=== PATIENT | female | born 1980 | race Caucasian/White ===

== ENCOUNTER 2017-12-08 12:59 | Outpatient (REF) | payer MEDICAID, SELFPAY ==
[2017-12-08 19:56] LABS: HCT 43.2 % (36.0-46.0); HGB 14.5 g/dL (12.0-15.5); Mean Corp. HGB Concentration 33.6 g/dL (32.0-36.0); Mean Corpuscular Hemoglobin 31.9 pg (27.0-33.0); Mean Corpuscular Volume 94.9 fL (80-95); Mean Platelet Volume 10.2 fL (8.0-11.0); Platelet Count 211 x1000/uL (130-400); RBC 4.55 m/cumm (4.00-5.20); RBC Distribution Width 12.9 % (11.7-14.6); White Blood Cell Count 4.62 k/cumm (4.4-10.8)
[2017-12-08 20:45] LABS: ALT 35 U/L (12-78); AST 19 U/L (15-37); Albumin 4.1 g/dL (3.4-5.0); Alkaline Phosphatase 61 U/L (46-116); Anion Gap 7.8 mmol/L (3-11); BUN 11 mg/dL (7-18); Bilirubin, Total 0.4 mg/dL (0.2-1.0); CO2 28.2 mmol/L (21.0-32.0); CREATININE 0.85 mg/dL (0.55-1.02); Calcium 8.6 mg/dL (8.5-10.1); Chloride 105 mmol/L (98-107); Glucose 90 mg/dL (70-100); Potassium 3.9 mmol/L (3.5-5.1); Sodium 141 mmol/L (136-145); TSH (W/Ref FT4) 1.36 uIU/mL (0.358-3.74); Total Protein 7.2 g/dL (6.4-8.2); Vitamin B12 502 pg/mL (193-986)
[2017-12-08 21:04] LABS: Folate > 20.0 ng/mL (8.6-20.0)
[2017-12-10 10:30] LABS: Hepatitis B Surface Ag Negative (NEGAT)
[2017-12-10 10:38] LABS: HIV-1/2 Ag & Ab Screen Negative (NEGAT)
[2017-12-10 10:44] LABS: Hepatitis C Ab w Rflx HCV PCR Negative (NEGAT)
== END 2017-12-08 13:19 ==
LOC: NCHCN 12:59
PROVIDERS: PCP Family Medicine; Visit Provider Family Medicine
DX: R53.83 Other fatigue (principal); Z11.3 Encounter for screening for infections with a predominantly sexual mode of transmission; Z11.59 Encounter for screening for other viral diseases; Z11.4 Encounter for screening for human immunodeficiency virus [HIV]
CPT/HCPCS: 80053; 85027; 86803; 87340; 87389; 82607; 82746; 84443; 87350

== ENCOUNTER 2019-07-31 14:15 | Outpatient (REF) | payer MEDICAID, SELFPAY ==
[2019-07-31 15:39] LABS: HCT 39.5 % (36.0-46.0); HGB 13.2 g/dL (12.0-15.5); Mean Corp. HGB Concentration 33.4 g/dL (32.0-36.0); Mean Corpuscular Hemoglobin 31.4 pg (27.0-33.0); Mean Platelet Volume 9.1 fL (8.0-11.0); RBC Distribution Width 12.7 % (11.7-14.6)
[2019-07-31 15:58] LABS: ALT 21 U/L (14-59); AST 19 U/L (15-37); Albumin 3.7 g/dL (3.4-5.0); Alkaline Phosphatase 80 U/L (46-116); Anion Gap 10.2 mmol/L (3-11); BUN 9 mg/dL (7-18); Bilirubin, Total 0.3 mg/dL (0.2-1.0); CO2 26.8 mmol/L (21.0-32.0); CREATININE 0.91 mg/dL (0.55-1.02); Calcium 8.6 mg/dL (8.5-10.1); Chloride 106 mmol/L (98-107); Glucose 108 mg/dL (74-106); Potassium 3.8 mmol/L (3.5-5.1); Sodium 143 mmol/L (136-145); Total Protein 6.6 g/dL (6.4-8.2)
[2019-08-02 13:05] LABS: IgA 177 mg/dL (85-499); Tissue Transglutaminase IgA <1.2 U/mL (<4.0)
== END 2019-07-31 14:35 ==
LOC: NCHCN 14:15
PROVIDERS: PCP Family Medicine; Visit Provider Family Medicine
DX: R19.7 Diarrhea, unspecified (principal); R60.9 Edema, unspecified
CPT/HCPCS: 80053; 82784; 83516; 85027; 84443

== ENCOUNTER 2021-01-15 12:51 | Outpatient (REF) | payer MEDICAID, SELFPAY ==
[2021-01-15 20:22] LABS: Hemoglobin A1C 5.1 % (<5.7)
[2021-01-15 20:35] LABS: TSH (W/Ref FT4) 2.15 uIU/mL (0.36-3.74)
[2021-01-20 10:25] LABS: HIV-1/2 Ag & Ab Screen Negative (Negative)
[2021-01-20 10:27] LABS: Hepatitis C Ab w Rflx HCV PCR Negative (Negative)
== END 2021-01-15 12:52 | disposition home or self-care (01) ==
LOC: NCHCN 12:51
PROVIDERS: PCP Family Medicine; Visit Provider Family Medicine
DX: R53.83 Other fatigue (principal); F32.9 Major depressive disorder, single episode, unspecified; Z11.59 Encounter for screening for other viral diseases; Z11.4 Encounter for screening for human immunodeficiency virus [HIV]
CPT/HCPCS: 86803; 87389; 83036; 84443

== ENCOUNTER 2021-08-13 15:45 | Outpatient (REF) | payer MEDICAID, SELFPAY ==
--- NOTE | 2021-08-13 14:20 | PAPFT_PTH ---
PATIENT: Tracie Rivera LOC: [facility]#:[id number] AGE/SX: 41/F ROOM: RE08/13/[address]: Piper Biswas : 1980 BED: DIS: 08/13/2021 SPEC #: [id number] RECD: 08/14/21 12:51 STATUS: ANGIE BENITEZ #: [id number] YANG: 08/13/21 14:[address]: Piper Biswas DEPT: [facility] Cytology RECD BY: Janie Madden Tissues: 1 - CX/ENDOCX FOR PAP SMEARS Procedures: PAP THIN PREP/UVM Screening HPV DNA PROBE Comments: [id number]
== END 2021-08-13 15:46 | disposition home or self-care (01) ==
LOC: NCHCN 15:45
PROVIDERS: PCP Family Medicine; Visit Provider Family Medicine
DX: Z12.4 Encounter for screening for malignant neoplasm of cervix (principal); Z11.51 Encounter for screening for human papillomavirus (HPV); Z01.419 Encounter for gynecological examination (general) (routine) without abnormal findings
CPT/HCPCS: 88142; 87624

== ENCOUNTER 2021-12-05 16:39 | Emergency (ER) | payer MEDICAID, SELFPAY ==
[2021-12-05 16:51] VITALS: BP 118/58; PULSE 76; RESP 18; TEMP 36.8; O2SAT 99
--- NOTE | 2021-12-05 17:02 | ED.GENADUL_ITS ---
Discharge Plan Disposition Patient Disposition: HOME Condition: Improving Discharge Details Clinical Impression: Odontalgia Primary Care Provider: Piper Biswas ED Provider: Earl Martinez Home Meds and New Rx's Prescriptions: New penicillin V potassium 500 mg tablet 500 mg PO TID 10 Days Qty: 30 0RF Continued valacyclovir 500 mg tablet 500 mg PO DAILY PRN NuvaRing 0.12-0.015 mg/24 hr ring 1 vag ring VG Q4W Qty: 3 6RF Rx Instructions: leave in place for 3 weeks of a 4-week cycle ondansetron HCl 4 MG tablet 4 mg PO TID albuterol sulfate 8.5 GM HFA aerosol inhaler 2 puff Inhalation BID buprenorphine-naloxone [Suboxone] 8-2 mg film 8 mg Sublingual DAILY bupropion HCl 100 mg tablet 150 mg PO DAILY ketoconazole 2 % cream 1 applic TP DAILY PRN dextroamphetamine-amphetamine [Adderall XR] 20 mg capsule,extended release 24hr 20 mg PO DAILY mirtazapine 7.5 mg tablet 7.5 mg PO DAILY rizatriptan 10 mg tablet 10 mg PO ONCE PRN Rx Instructions: may repeat once after at least 2 hours eszopiclone [Lunesta] 1 mg tablet 1 mg PO QHS PRN terbinafine HCl 1 % cream 1 applic TP DAILY PRN Discharge Instructions Instructions: Toothache (ED) Additional Instructions: Please follow-up with dentistry, right see enclosed. Salt water gargling. Tylenol and ibuprofen as needed for pain. Take penicillin as prescribed. Return to the ER for any acute concern Medical Decision Making Ovarian oval 41-year-old female with intermittent left upper unerupted wisdom tooth pain for years. Now with 2 days of recurrent pain and foul-smelling discharge yesterday. No change to voice, no swallowing difficulties she has not had a fever. She has evidence of periapical infection. We will treat with a course of penicillin. She is given referral for dentistry follow-up. She is stable and appropriate for discharge. HPI General Mode of arrival: ambulatory . Date/Time Provider Initiated Documentation: 12/05/21 16:55 . Limitations to Documentation: no limitations . Information obtained by: patient . History of Present Illness 41 year old F presents to the emergency department with the chief complaint of Left upper dental pain, recurrent, described as moderate and similar to prior episodes, Quality is described as dull and constant, and is localized to the face, mouth and left. Patient reports no radiation. Patient started experiencing this day(s) and it has been constant. No relieving factors improve symptom(s), No exacerbating factors reported . Patient notes denies chest pain, cough, fever/chills, loss of appetite, nausea/vomiting and shortness of breath. Related Data Home Medications Medication Instructions Recorded Confirmed albuterol sulfate 90 mcg/actuation 2 puff inhalation BID 09/18/14 06/01/18 aerosol inhaler ondansetron HCl 4 mg tablet 4 mg PO TID 09/18/14 06/01/18 buprenorphine 8 mg-naloxone 2 mg 8 mg sublingual DAILY 06/01/18 06/01/18 sublingual film (Suboxone) bupropion HCl 100 mg tablet 150 mg PO DAILY 06/01/18 06/01/18 etonogestrel 0.12 mg-ethinyl 1 vag ring vaginal Q4W #3 ea 06/01/18 06/01/18 estradiol 0.015 mg/24 hr vaginal ring (NuvaRing) valacyclovir 500 mg tablet 500 mg PO DAILY PRN 06/01/18 06/01/18 dextroamphetamine-amphetamine ER 20 mg PO DAILY 08/03/19 20 mg 24hr capsule,extend release (Adderall XR) eszopiclone 1 mg tablet (Lunesta) 1 mg PO QHS PRN 08/03/19 ketoconazole 2 % topical cream 1 applic topical DAILY PRN 08/03/19 mirtazapine 7.5 mg tablet 7.5 mg PO DAILY 08/03/19 rizatriptan 10 mg tablet 10 mg PO ONCE PRN 08/03/19 terbinafine HCl 1 % topical cream 1 applic topical DAILY PRN 08/03/19 penicillin V potassium 500 mg 500 mg PO TID 10 days #30 tabs 12/05/21 tablet Previous Rx's Medication Instructions Recorded etonogestrel 0.12 mg-ethinyl 1 vag ring vaginal Q4W #3 ea 06/01/18 estradiol 0.015 mg/24 hr vaginal ring (NuvaRing) penicillin V potassium 500 mg 500 mg PO TID 10 days #30 tabs 12/05/21 tablet Allergies Allergy/AdvReac Type Severity Reaction Status Date / Time Ciales And Derivatives Allergy Unknown Unverified 06/01/18 13:00 milk Allergy Unknown Unverified 06/01/18 13:00 General Stated Complaint: DentalOral RICA: 4 Review of Systems Narrative: no difficulty swallowing, no change to voice. Sick systems reviewed and otherwise neg PFSH All Active Problems (Updated 12/05/21 @ 17:05 by Earl Martinez MD) Odontalgia (Acute) Depression (Chronic) Medical History ADHD Allergic rhinitis Cannabis abuse Contraceptive education Depression Edema Excessive thirst Herpes genitalia Insomnia Migraine Nausea and vomiting Opioid dependence on agonist therapy Pain of both breasts Pain of right thumb PTSD (post-traumatic stress disorder) Urinary incontinence Vertigo Family History Maternal Aunt Breast cancer Social History Smoking/Tobacco Use Status: Unknown Smoking risk assessment performed?: Yes Drug use: Daily Substance use type: marijuana Do you feel safe at home: Yes Do you feel safe in your relationship?: Yes Female Reproductive History Menstrual control method: condoms History History 1 Para 0 Hx # Term Pregnancies Multiple births Hx # Pregnancies Ectopic pregnancies AB induced Hx Number of Living Children AB spontaneous Exam Narrative Exam Narrative: GEN: awake, alert, oriented 3. Pleasant, well groomed, interactive. HEAD: Normocephalic, atraumatic ENT: Mucous membranes moist, oropharynx with mild buccal swelling overlying left upper partially erupted wisdom tooth. No lingual aspect swelling. Tympanic membranes visualized and with some congestion of the left but otherwise, External ear exam unremarkable EYES: PERRL, EOMI NECK: Full ROM, no JAYDE, no menigismus CHEST/RESP: Nontender, clear to auscultation bilateral, no wheeze/rhonchi/rales CARDIOVASCULAR: RRR, no murmur, rub tevin. 2+ Rad pulse bilateral ABDOMEN: Soft, nontender, no mass. +Bowel sounds EXT: Full ROM, no edema, no rash Neuro: Grossly normal neurologic exam, conversant, interactive. Psych: Speech fluent, thoughts congruent, affect normal Course Vital Signs Vital signs: Vital Signs Temperature 36.8 C 12/05/21 16:51 Pulse 76 12/05/21 16:51 Respiratory Rate 18 12/05/21 16:51 Blood Pressure 118/58 L 12/05/21 16:51 Pulse Oximetry 99 12/05/21 16:51 Temperature 36.8 C 12/05/21 16:51 Temperature Source Temporal Artery Scan 12/05/21 16:51 Pulse 76 12/05/21 16:51 Respiratory Rate 18 12/05/21 16:51 Respiratory Effort Non-Labored 12/05/21 16:54 Blood Pressure 118/58 L 12/05/21 16:51 Blood Pressure Position Sitting 12/05/21 16:51 Pulse Oximetry 99 12/05/21 16:51 Oxygen Delivery Method Room Air 12/05/21 16:51 Oxygen Flow Rate 0 12/05/21 16:51 Pain Level 4 12/05/21 16:51
[2021-12-05] MEDS: Penicillin V POTASSIUM 500 MG TAB, 4 TABS/BTL PO (17:21)
== END 2021-12-05 17:27 | disposition home or self-care (01) ==
PROVIDERS: Emergency Provider Emergency Medicine; PCP Family Medicine
DX: K08.89 Other specified disorders of teeth and supporting structures (principal); K04.4 Acute apical periodontitis of pulpal origin
CPT/HCPCS: 99282

== ENCOUNTER 2023-04-22 14:52 | Outpatient (REF) | payer MEDICAID, SELFPAY ==
[2023-04-22 18:54] LABS: Bilirubin Negative (Negative); Blood Trace-intact (Negative); Clarity Sl Cloudy (Clear); Glucose Negative (Negative); Ketones Negative (Negative); Leukocyte Esterase Negative (Negative); Nitrite Negative (Negative); Urobilinogen 0.2 mg/dL (Up to 0.2)
[2023-04-22 19:01] LABS: Abs Immature Grans 0.01 10^3/uL (0.0-0.06); Absolute Basophil Count 0.09 10^3/uL (0.0-0.2); Absolute Eosinophil Count 0.11 10^3/uL (0.0-0.7); Absolute Monocyte Count 1.05 10^3/uL (0.1-0.8); Absolute Neutrophil Count 4.93 10^3/uL (1.2-6.7); Eosinophils % 1.2; HCT 42.6 % (36.0-46.0); HGB 14.4 g/dL (11.2-15.7); Immature Grans % 0.1; Lymphocytes % 32.6; MCH 31.4 pg (27.0-33.0); MCHC 33.8 % (32.0-36.0); MCV 93 fL (80-95); Monocytes % 11.4; Neutrophils % 53.7; RBC 4.59 10^6/uL (3.93-5.22); RDW 12.4 % (11.7-14.6); RDW-SD 42.5 fL; WBC 9.19 10^3/uL (4.4-10.8)
[2023-04-22 19:02] LABS: Bacteria Rare HPF (Negative); C & S Indicated? No; Casts Negative LPF (Negative); Crystals Negative HPF (Negative); Epithelial Cells Rare HPF (Negative); HCG Qual (Urine) Negative; Mucus Trace (Negative); RBC 0-2 HPF (0-2); WBC 0-2 HPF (0-5)
[2023-04-22 19:10] LABS: ALT 28 U/L (14-59); AST 12 U/L (15-37); Albumin 3.9 g/dL (3.4-5.0); Alkaline Phosphatase 68 U/L (46-116); Anion Gap 13.2 mmol/L (3-11); BUN 11 mg/dL (7-18); Bilirubin, Total 0.3 mg/dL (0.2-1.0); CO2 22.8 mmol/L (21.0-32.0); Calcium 8.7 mg/dL (8.5-10.1); Chloride 105 mmol/L (98-107); Glucose 101 mg/dL (74-106); Magnesium 2.2 mg/dL (1.8-2.4); PHOSPHORUS 2.2 mg/dL (2.6-4.7); Potassium 3.8 mmol/L (3.5-5.1); Sodium 141 mmol/L (136-145); Total Protein 7.4 g/dL (6.4-8.2)
[2023-04-22 19:11] LABS: *AMPHETAMINES SCREEN URINE Negative (Negative); *BARBITURATES SCREEN URINE Negative (Negative); *BENZODIAZEPINES SCREEN URINE Negative (Negative); Cannabinoids THC Positive (Negative); Cocaine Screen,Urine Negative (Negative); METHADONE URINE SCREEN Negative (Negative); OPIATES URINE SCREEN Negative (Negative); Tricyclic Antidepressants Negative (Negative)
[2023-04-22 19:12] LABS: Diff Comment PLT Morph Reviewed
[2023-04-22 19:13] LABS: RBC Morphology Normal
== END 2023-04-22 14:53 | disposition home or self-care (01) ==
LOC: NCHCN 14:52
PROVIDERS: PCP Family Medicine; Referring Provider Family Medicine; Visit Provider Family Medicine
DX: Z00.00 Encounter for general adult medical examination without abnormal findings (principal)
CPT/HCPCS: 80053; 80307; 81003; 81015; 81025; 83735; 84100; 85025

== ENCOUNTER 2024-01-23 11:41 | Emergency (ER) | payer MEDICAID, SELFPAY ==
[2024-01-23 11:53] VITALS: BP 162/87; PULSE 86; RESP 16; TEMP 37.3; O2SAT 98
--- OUTSIDE RECORDS SUMMARY | 2024-01-23 11:54 | XMS_ITS | Encounter Summary ---
Author Organization [facility] Address [address] [place] [address] Care Team Providers Care Interpreter Name Role Phone Piper Biswas MD Primary Care Provider [phone] Reason for Visit * Reason Comments Psychiatric Evaluation pt arrives with r carmellaest to see crisis. denies SI at this time and HI, but does endorse hx SI but no attempts to take life. VS WNL. pt calm and cooperative. arrives with partner. VS WNL. Encounter Details Date Type Department Care Team (Late st Contact Info) Description 11/13/2020 19:37 EDT - 11/13/2020 22:19 EDT Emergency [facility] Emergency Department - [address] [address] Mar Grande PA-C [address] [place] [address], [address] [place] [address] Emotional stress (Primary Dx) Discharge Disposition: Home or Self Care Social History Tobacco Use Types Packs/Day Years Used Date Smoking Tobacco: Former Cigarettes 1 8 PHQ-2 Answer Date Recorded PHQ-2 SUBTOTAL 6 11/13/2020 Interpersonal Safety Answer Date Record ed Physically Hurt Never 09/24/2019 Verbally Threaten Not on file 09/24/2019 Comments Unknown Sex and Gender Information Value Date Recorded Sex Assigned at Not on file Legal Sex Female 18:21 EST Gender Identity Female 11/13/2020 19:49 EDT Sexual Orientation Not on file COVID-19 Exposure Response Date Recorded In the last month, have you been in contact with someone who was confirmed or suspected to have Coronavirus / COVID-19? No / Unsure 11/13/2020 17:26 EDT documented as of this encounter Last Filed Vital Signs Vital Sign Reading Time Taken Comments Blood Pressure 137/80 11/13/2020 1725 EDT Pulse 72 11/13/2020 1725 EDT Temperature 36.8 ??C (98.2 ??F) 11/13/2020 1725 EDT Respiratory Rate 18 11/13/2020 1725 EDT Oxygen Saturation 100% 11/13/2020 1725 EDT Inhaled Oxygen Concentration - - Weight 77.1 kg (170 lb) 11/13/2020 1725 EDT Height 167.6 cm (5' 6) 11/13/2020 1725 EDT Body Mass Index 27.44 11/13/2020 1725 EDT documented in this encounter Discharge Instructions * Discharge Instructions* Mar Grande PA-C - 11/13/2020 22:00 EDT If you were to have any thoughts of harming yourself or anyone else please call the following number. It is the crisis hotline through the [facility]. . Please also go directly to the ER. If you are interested in intake with our outpatient counseling group they are located on [facility] also through the [facility]. [facility] offers outpatient services for adults with mental health and/or substance use issues. The program promotes wellness and recovery in all areas and through all phases of a person???s life. Clinicians help clients focus on their strengths and encourage self-care, connections to others and the community, and independence. Clients refer themselves to the program or they may be referred by another state/community agency. For more information about [facility], call [phone] or [phone]. documented in this encounter Medications at Time of Discharge albuterol 90 mcg/actuation inhaler Inhale 180 mcg as directed every 4 hours. buprenorphine-nalox one (SUBOXONE) 2-0.[address] 1 Film under the tongue daily. Take one film daily along with 8 mg to total 10 mg daily., fill at [facility] in [place] only. buprenorphine-nalox one (SUBOXONE) 8-[address] 1 Film under the tongue daily. citalopram (CELEXA) 20 mg tablet Take 10 mg by mouth daily. dextroamphetamine-a mphetamine (ADDERALL XR) 10 mg XR capsule Take 10 mg by mouth daily. eszopiclone (LUNESTA) 1 mg tablet Take 2 mg by mouth at bedtime as needed. ethinyl estradiol-etonogest rel (NUVARING) 0.12-0.015 mg/[address] 1 Each vaginally every 28 days. Wear continuously for 3 weeks; remove for 1 week; repeat with new ring, as directed. hydrOXYzine (VISTARIL) 25 mg capsule Take 25 mg by mouth every 12 hours as needed (for anxiety). ibuprofen (MOTRIN) 600 mg tablet Take 600 mg by mouth every 8 hours as needed for Pain. ketoconazole (NIZORAL) 2 % cream Apply topically if needed. Apply to rash on breasts as needed. L-Methylfolate (L-METHYLFOLATE) 15 mg tablet Take by mouth daily. mirtazapine (REMERON) 7.5 mg tablet Take 7.5 mg by mouth daily. Take one every night. ondansetron (ZOFRAN-ODT) 4 mg disintegrating tablet Take 4 mg by mouth every 8 hours as needed for Nausea. rizatriptan (MAXALT-CONTRACT RUNNER) 10 mg disintegrating tablet Take 10 mg by mouth as needed for Migraine (Take one at onset of headache; can repeat in 2 hours, max of 2 in 24 hours.). valACYclovir (VALTREX) 500 mg tablet Take 500 mg by mouth 2 times daily. Take twice daily for 3 days. documented as of this encounter Discharge Disposition Disposition Code Departure Means Destination Home or Self Penitentiary documented in this encounter ED Notes * Elyssa Gerber RN - 11/13/20202009 EDT .20:10 ELSYSA GERBER RN Initial patient contact, alert and oriented x3 and speaking in full, clear sentences. Patient presents from community reporting I am [facility] because [facility] [place] I need help. When clarifying questions asked, patient responds I have been feeling anxious and suicidal thepast 3-4 days and my partner is tired of dealing with me. Patient further reports that she would probably do it with pills when asked about plan/intent. Patient's presentation is atraumatic, lungsCTAB, denies medical complaints. 1:1 sitter initiated. VS stable. Constant observation plan initiated. 21:00 Context of patient's discussion with clinician would indicated patient misspoke when endorsing SI w/ plan. Per provider no sitter indicated at this time. 22:18 Patient preparing for discharge. Patient verbalized understanding and acceptance of education. Patient discharged to home with significant other. Return precautions discussed. First Call number provided. * Mar Grande PA-C - 11/13/2020 2003 EDT DOS: 11/13/2020 Chief Complaint Patient presents with ??? Psychiatric Evaluation pt arrives with request to see crisis. denies SI at this time and HI, but does endorse hx SI but noattempts to take life. VS WNL. pt calm and cooperative. arrives with partner. VS WNL. HPI The patient is a 40 y.o. female who presents today with Psychiatric Evaluation (pt arrives with request to see crisis. denies SI at this time and HI, but does endorse hx SI but no attempts to take life. VS WNL. pt calm and cooperative. arrives with partner. VS WNL.) HPI 40-year-old female presenting today for psychiatric evaluation. Patient reports that her psychiatrist sent her this direction to be evaluated to see if she was a good fit for [place] [facility]. Shereports that she has been using Suboxone for 17 years with good relief from substance abuse. She also reports a significant past medical history positive for posttraumatic stress disorder. She does not offer details with regards to this. Review of Systems Review of Systems Constitutional: Negative for chills and diaphoresis. HENT: Negative for facial swelling and voice change. Eyes: Negative for redness. Respiratory: Negative for choking and shortness of breath. Skin: Negative for color change and pallor. Neurological: Negative for facial asymmetry and speech difficulty. Psychiatric/Behavioral: Positive for sleep disturbance. Negative for agitation, confusion and suicidal ideas. The patient is nervous/anxious. Allergies Allergen Reactions ??? Latex rash ??? Milk Other (See Comments) Vital Signs Temp: 36.8 ??C (98.2 ??F) Temp src: Temporal Pulse: 72 Resp: 18 SpO2: 100 % BP: 137/80 BP Device: BP Machine BP Patient Position: Sitting BP Cuff Location: Left arm O2 Device: None (Room air) Physical Exam Constitutional: General: She is not in acute distress. Appearance: She is well-developed. She is not diaphoretic. HENT: Head: Normocephalic and atraumatic. Pulmonary: Effort: Pulmonary effort is normal. Musculoskeletal: Cervical back: Normal range of motion and neck supple. Skin: General: Skin is warm and dry. Neurological: Mental Status: She is alert and oriented to person, place, and time. Psychiatric: Attention and Perception: Attention normal. Mood and Affect: Affect is flat. Behavior: Behavior normal. Thought Content: Thought content normal. Judgment: Judgment normal. RESULTS EKG orders: None Radiology orders: None Procedures ED COURSE A medical screening exam was performed. 40-year-old female presenting today for evaluation with first call secondary to hoping for placement at [facility]. Discussed with the patient in transparency that this will likely take some time. First call is aware and will evaluate the patient when able. First call was consulted at 1999. Patient signed out pending for skull evaluation. Final diagnoses: None DISPOSITION: No disposition on file PCP: Piper Waller 11/13/2020 20:03 No flowsheet data found. documented in this encounter Plan of Treatment Not on file documented as of this encounter Visit Diagnoses Diagnosis Emotional stress- Primary Unspecified acute reaction to stress documented in this encounter Care Teams Interpreter Relationship Specialty Start Date End Date Piper Biswas MD [address] [place] [phone] PCP - General 08/30/20 documented as of this encounter
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
--- OUTSIDE RECORDS SUMMARY | 2024-01-23 11:54 | XMS_ITS | Encounter Summary ---
Author Organization [facility] Address [address] [place] [address] Care Team Providers Care Marketing Agent Name Role Phone Piper Biswas MD Primary Care Provider [phone] Encounter Details Date Type Department Care Team (Late st Contact Info) Description 02/05/2023 Lab Requisition [facility] Pathology & Laboratory Medicine - [address] [address] Noel Ken MD [address] [place] [phone] Unspecified abdominal pain; Constipation, unspecified; Heartburn; Nausea with vomiting, unspecified; Cannabis use, unspecified, uncomplicated Social History Tobacco Use Types Packs/Day Years [...] 19:49 EDT Sexual Orientation Not on file documented as of this encounter Plan of Treatment Not on file documented as of this encounter Procedures Procedure Name Priority Date/Time Associated Diagnosis Comments SURGICAL PATHOLOGY Today 02/04/2023 12 :15 EST Unspecified abdominal pain Constipation, unspecified Heartburn Nausea with vomiting, unspecified Cannabis use, unspecified, uncomplicated documented in this encounter Results * SURGICAL PATHOLOGY (02/04/2023 12:15 [facility]) Note to Patient The following pathology results have been interpreted by your pathologist and may be available to you before your health provider has had the opportunity to review them. Please allow time for your provider to receive these results and explore management options, if applicable. 02/08/2023 16:31 [facility] Final Diagnosis A. DUODENUM, BIOPSY: - Partially denuded fragments of duodenal mucosa with no definitive pathologic change. - No evidence of gluten-sensitive enteropathy (celiac sprue) in the few intact villi present for review. B. DUODENUM, BULB, BIOPSY: - Duodenal mucosa with no significant pathologic change. C. STOMACH, PRE-PYLORIC ANTRUM, BIOPSY: - Antral-type mucosa with mild, patchy reactive changes. - No intestinal metaplasia or dysplasia. - No evidence of Helicobacter pylori on routine H&E stain. D. STOMACH, BODY, BIOPSY: - Oxyntic-type mucosa with mild, patchy reactive changes. - No intestinal metaplasia or dysplasia. - No evidence of Helicobacter pylori on routine H&E stain. E. ESOPHAGUS, DISTAL, BIOPSY: - Squamous epithelium with reactive changes and increased intraepithelial eosinophils (up to 17 per high-power field), favor reflux esophagitis. See comment. F. ESOPHAGUS, MID, BIOPSY: - Squamous epithelium with mild reactive change and patchy mild increase in intraepithelial eosinophils (up to 9 per high-power field). See comment. 02/08/2023 16:31 [facility] Diagnosis Comment Specimens E and F: The overall morphologic findings and distribution of eosinophils in the esophageal biopsies favor reflux esophagitis. However, correlation with the clinical and endoscopic findings is suggested to entirely exclude eosinophilic esophagitis, which seems less likely based on the histologic findings alone. The technical component of the specimen processing was performed at the [facility] Pathology Department, [address] [place] [address] (CLIA [id number]). The professional component of the specimen evaluation (slide review and issuing of the final diagnosis) was performed at [facility], [address] [place] [address] (CLIA License Number [id number]). 02/08/2023 16:31 [facility] Attestation By the signature below, the attending physician certifies that they have 1) personally conducted a gross and/or microscopic examination of the described specimen(s), and/or personally interpreted the results of laboratory testing of the described specimen(s), and 2) personally rendered or confirmed the above diagnosis. 02/08/2023 16:31 [facility] at 1631 Clinical History EGD HX: Nausea and vomiting, pyrosis, dyspepsia, constipation, abdominal pain, cannabis use D/O Gastric erythema 02/08/2023 16:31 [facility] Gross Description A. Received in formalin labelled with proper patient identification (initials G, M) and A. Duodenum Bx are 2 etienne tissues (0.3 x 0.2 x 0.1 cm and 0.3 x 0.1 x 0.1 cm). Entirely submitted in A1. B. Received in formalin labelled with proper patient identification (initials G, M) and B. Duodenal bulb Bx is a single etienne-brown tissue (0.3 x 0.2 x 0.1 cm). Submitted intact in B1. C. Received in formalin labelled with proper patient identification (initials G, M) and C. Pre-pyloric gastric antrum Bx is a single etienne tissue (0.25 x 0.2 x 0.1 cm). Submitted intact in C1. D. Received in formalin labelled with proper patient identification (initials G, M) and D. Gastric body Bx are 2 etienne-brown tissues (0.2 x 0.1 x 0.1 cm and 0.1 x 0.1 x 0.1 cm). Entirely submitted in D1. E. Received in formalin labelled with proper patient identification (initials G, M) and E. Distal esophagus Bx are 3 transparent rhoades-white and rhoades-white focally brown wispy tissues (0.3 x 0.1 x 0.1 cm to 0.2 by less than 0.1 by less than 0.1 cm). Entirely submitted in E1. Please note the smallest tissue may not survive processing. F. Received in formalin labelled with proper patient identification (initials G, M) and F. Mid esophagus Bx are 3 transparent etienne-white wispy tissues (0.3 x 0.1 by less than 0.1 cm to 0.2 x 0.2 x 0.1 cm). Entirely submitted in F1. Linda Johnson 02/05/2023 9:04 02/08/2023 16:31 EST [facility] Performing Lab [facility] 16:31 EST [facility] Scanned Images 02/08/2023 16:31 EST [facility] Tissue ESOPHAGEAL STRUCTURE / Unknown 02/04/2023 12:15 EST 02/05/2023 7:00 EST Tissue specimen (specimen) STRUCTURE OF SMALL INTESTINE / Unknown 02/04/2023 12:15 EST 02/05/2023 7:00 EST Tissue specimen (specimen) STOMACH STRUCTURE / Unknown 02/04/2023 12:15 EST 02/05/2023 7:00 EST Tissue specimen (specimen) STOMACH STRUCTURE / Unknown 02/04/2023 12:15 EST 02/05/2023 7:00 EST Tissue specimen (specimen) ESOPHAGEAL STRUCTURE / Unknown 02/04/2023 12:15 EST 02/05/2023 7:00 EST Tissue specimen (specimen) ESOPHAGEAL STRUCTURE / Unknown 02/04/2023 12:15 EST 02/05/2023 7:00 EST us Noel Ken MD PATHOLOGY ORDERABLES Final Result [facility] [address] [place] [address] documented in this encounter Visit Diagnoses Diagnosis Unspecified abdominal pain Constipation, unspecified Heartburn Nausea with vomiting, unspecified Cannabis use, unspecified, uncomplicated documented in this encounter Care Teams Marketing Agent Relationship Specialty Start Date End Date Piper Biswas MD [address] [place] [phone] PCP - General 08/30/20 documented as of this encounter
--- OUTSIDE RECORDS SUMMARY | 2024-01-23 11:54 | XMS_ITS | Referral Summary ---
Author Organization [facility] Address [address] [place] [address] Care Team Providers Care Frame Changer Name Role Phone Piper Biswas MD Primary Care Provider [phone] Allergies Active Allergy Reactions Criticality Noted Date [...] to total 10 mg daily., fill at [facility] in [place] only. Active mirtazapine (REMERON) 7.5 mg tablet Take 7.5 mg by mouth daily. Take one every night. Active rizatriptan (MAXALT-CERTIFIED PEDIATRIC NURSE PRACTITIONER) 10 mg disintegrating tablet Take 10 mg [...] incontinence 02/26 Opioid dependence on agonist therapy ([facility]) 0 02/27/2020 PTSD (post-traumatic stress disorder) 02/27/2020 ADHD 02/27/2020 Depression 02/27/2020 Chronic insomnia 02/27/2020 Allergic rhinitis 02/27/2020 Migraine 02/27/2020 Cannabis abuse 02/27/2020 Social History Tobacco Use Types Packs/Day Years [...] 19:49 EDT Sexual Orientation Not on file Last Filed Vital Signs Vital Sign Reading [...] 27.44 11/13/2020 1725 EDT Plan of Treatment Not on file Procedures Procedure Name Priority Date/Time Associated Diagnosis Comments HEPATITIS C AB W REFLEX TO HCV RNA BY PCR Routine 01/15/2021 11:50 EST from Last 3 Months or Most Recently Relevant to Health Maintenance Results * HEPATITIS C AB W REFLEX TO HCV RNA BY PCR (01/15/2021 11:50 EST) Hep C Antibody Negative Negative 01/20/2021 10:23 EST [facility] Blood VENOUS BLOOD / Unknown 01/15/2021 11:50 EST 01/17/2021 15:53 EST us Provider Outr Resulting Lab CHEMISTRY & BLOOD GA S ORDERABLES Final Result Performing Organization Address City/State/[facility] Co de Phone Number [facility] [address] [place] [phone] from Last 3 Months or Most Recently Relevant to Health Maintenance Insurance MEDICAID [place] MEDICAID O MD Care Teams Frame Changer Relationship Specialty Start Date End Date Piper Biswas MD [address] [place] [phone] PCP - General 08/30/20
--- OUTSIDE RECORDS SUMMARY | 2024-01-23 11:54 | XMS_ITS | Encounter Summary ---
[place] [address] Care Team Providers Care Marketing Analytics Specialist Name Role Phone Piper Biswas MD Primary Care Provider [phone] Reason for Referral * Psychiatric (Urgent) - Closed Specialty Diagnoses / Procedures Referred By Leonel t Referred To Contact Psychiatry Diagnoses Epigastric pain MOOD DISORDER WITH GI SYMPTOMS;SUICIDAL IDEATION Noel Ken MD [address] [place] [phone] [facility] Psychiatry [address] [place] [phone] Referral ID Status Reason Start Date Expiration Date V isits Requested Visits Authorized [id number] Closed Consult, Test & Treat PCP Updated and/or Approved 03/23/2023 03/22/2024 6 6 Encounter Details Date Type Department Care Team (Late st Contact Info) Description 03/23/2023 Transcribe Orders eD Incoming Referrals [phone] Noel Ken MD [address] [place] [phone] Epigastric pain Social History Tobacco Use Types Packs/Day Years Used Date Smoking Tobacco: Never Assessed Sex and Gender Information Value Date Recorded Sex Assigned at Not on file Gender Identity Not on file Sexual Orientation Not on file documented as of this encounter Plan of Treatment Scheduled Referrals Name Type Priority Associated Diagnoses Order Schedule Referral to Adult Psychiatry Outpatient Referral Urgent Epigastric pain Ordered: 03/23/2023 documented as of this encounter Visit Diagnoses Diagnosis Epigastric pain Abdominal pain, epigastric documented in this encounter Care Teams Marketing Analytics Specialist Relationship Specialty Start Date End Date Piper Biswas MD [facility] [address] [place] [address] PCP - General Family Medicine 03/23/23 documented as of this encounter
--- OUTSIDE RECORDS SUMMARY | 2024-01-23 11:54 | XMS_ITS | Encounter Summary ---
Author Organization [facility] Address [address] [place] [address] Care Team Providers Care Front Attendant Name Role Phone Piper Biswas MD Primary Care Provider [phone] Encounter Details Date Type Department Care Team (Latest Contact Info) Description 11/13/2020 Travel Social History Tobacco Use Types Packs/Day Years [...] 17:26 EDT documented as of this encounter Plan of Treatment Not on file documented as of this encounter Visit Diagnoses Not on filedocumented in this encounter Care Teams Front Attendant Relationship Specialty Start Date End Date Piper Biswas MD [address] [place] [phone] PCP - General 08/30/20 documented as of this encounter
--- OUTSIDE RECORDS SUMMARY | 2024-01-23 11:54 | XMS_ITS | Encounter Summary ---
Author Organization [facility] Address [address] [place] [address] Care Team Providers Care Powder Carrier Name Role Phone Piper Biswas MD Primary Care Provider [phone] Encounter Details Date Type Department Care Team (Late st Contact Info) Description 01/16/2021 Lab Requisition [facility] Pathology & Laboratory Medicine - [address] [address] Outr Resulting Lab, Provider Social History Tobacco Use Types Packs/Day Years [...] RNA BY PCR Routine 01/15/2021 11:50 EST documented in this encounter Results * HEPATITIS C AB W REFLEX TO HCV RNA BY PCR (01/15/2021 11:50 EST) Hep C Antibody Negative Negative 01/20/2021 10:23 EST [facility] Blood VENOUS BLOOD / Unknown 01/15/2021 11:50 EST 01/17/2021 15:53 EST us Provider Outr Resulting Lab CHEMISTRY & BLOOD GA S ORDERABLES Final Result Performing Organization Address City/State/[facility] Co de Phone Number [facility] [address] [place] [address] documented in this encounter Visit Diagnoses Not on filedocumented in this encounter Care Teams Powder Carrier Relationship Specialty Start Date End Date Piper Biswas MD [address] [place] [phone] PCP - General 08/30/20 documented as of this encounter
--- OUTSIDE RECORDS SUMMARY | 2024-01-23 11:54 | XMS_ITS | Encounter Summary ---
Author Organization [facility] Address [address] [place] [address] Care Team Providers Care Railcar Carpenter Name Role Phone Piper Biswas MD Primary Care Provider [phone] Encounter Details Date Type Department Care Team (Latest Contact Info) Description 08/15/2021 Lab Requisition [facility] Pathology & Laboratory Medicine - [address] [address] Piper Biswas MD [address] [place] [phone] Encounter for gynecological examination (general) (routine) without abnormal findings; Encounter for screening for malignant neoplasm of cervix Social History Tobacco Use Types Packs/Day Years [...] Procedure Name Priority Date/Time Associated Diagnosis Comments PAP TEST Today 08/13/2021 14:20 EDT Encounter for gynecological examination (general) (routine) without abnormal findings Encounter for screening for malignant neoplasm of cervix HPV DNA DETECTION WITH GENOTYPING, PCR Today 08/13/2021 14:20 EDT Encounter for gynecological examination (general) (routine) without abnormal findings Encounter for screening for malignant neoplasm of cervix documented in this encounter Results * HUMAN PAPILLOMAVIRUS (HPV) DETECTION-HIGH RISK TYPES (08/13/2021 14:20 EDT) HPV other High Risk types, PCR Negative Negative 08/20/2021 19:24 EDT [facility] Comment:No E6 or E7 mRNA is detected from HPV types 16,18,31,33,35,39,45,51,52,56,58,59,66, and 68 by rush seater mediated amplification. Papanicolaou smear specimen (specimen) CERVIX UTERI STRUCTURE / Unknown 08/13/2021 14:20 EDT 08/19/2021 11:21 EDT us Piper Biswas MD MICROBIOLOGY - GENERAL ORDERABLE S Final Result Performing Organization Address City/State/[facility] Co de Phone Number [facility] [address] [place] [phone] * PAP TEST (08/13/2021 14:20 EDT) Specimens A. Cervix and/or Endocervix , ThinPrep Imaging System with Manual Evaluation 08/20/2021 19:24 T [facility] Specimen Adequacy Satisfactory for Evaluation - transformation zone component present 08/20/2021 19:24 T [facility] General Categorization Negative for intraepithelial lesion or malignancy 08/20/2021 19:24 T [facility] Attestation . 08/20/2021 19:24 [facility] at 1924 Clinical History See below 08/21/19 19:24 T [facility] HPV The result for the Human Papillomavirus (HPV) Detection-High Risk Types is Negative. No E6 or E7 mRNA is detected from HPV types 16,18,31,33,35,39 ,45,51,52,56,58,5 9,66, and 68 by rush seater mediated amplification.Suzanne ting was performed on specimen [id number] and was resulted on 08/20/2021 1915 EDT by NIKOLAS, LAB INSTRUMENT RESULTS IN 08/20/2021 19:24 EDT [facility] Performing Lab [facility] 08/20/2021 19:24 EDT [facility] Scanned Images 08/20/2021 19:24 EDT [facility] Papanicolaou smear specimen (specimen) CERVIX UTERI STRUCTURE / Unknown 08/13/2021 14:20 EDT 08/15/2021 13:48 EDT us Piper Biswas MD PATHOLOGY ORDERABLES Final Resul t [facility] [address] [place] [address] documented in this encounter Visit Diagnoses Diagnosis Encounter for gynecological examination (general) (routine) without abnormal findings Encounter for screening for malignant neoplasm of cervix Screening for malignant neoplasm of the cervix documented in this encounter Care Teams Railcar Carpenter Relationship Specialty Start Date End Date Piper Biswas MD [address] [place] [phone] PCP - General 08/30/20 documented as of this encounter
--- OUTSIDE RECORDS SUMMARY | 2024-01-23 11:54 | XMS_ITS | Clinical Summary ---
[place] [address] Care Team Providers Care Painting Contractor Name Role Phone Piper Biswas MD Primary Care Provider [phone] Social History Tobacco Use Types Packs/Day Years Used Date Smoking Tobacco: Never Assessed Sex and Gender Information Value Date Recorded Sex Assigned at Not on file Gender Identity Not on file Sexual Orientation Not on file Plan of Treatment Health Maintenance Due Date Last Done Comments CT Colonography 1978 Colonoscopy 1978 Colorectal Cancer Screening 1978 FIT DNA 1978 FIT 1978 Sigmoidoscopy (10 year) with FIT yearly 1978 Sigmoidoscopy 1978 HIV screen 01/07/1996 Hepatitis C Screening 01/07/1996 Hepatitis B vaccine (0-59 yrs) (1) 1997 Tetanus/Diphtheria/Pertussis Vaccines (1 - Tdap) 01/06 HPV test 01/07/2008 PAP Smear 01/07/2008 Breast Cancer Share Decision Needed 2018 Breast Cancer screening 2018 Covid-19 Vaccine ( - season) 2023 Influenza (Flu) vaccine (1 o f 1 - Influenza standard series) 10/24/2023 Care Teams Painting Contractor Relationship Specialty Start Date End Date Piper Biswas MD [facility] [address] [place] [address] PCP - General Family Medicine 03/23/23
--- OUTSIDE RECORDS SUMMARY | 2024-01-23 11:54 | XMS_ITS | Encounter Summary ---
Author Organization [facility] Address [address] [place] [address] Care Team Providers Care Superintendent Local Name Role Phone Piper Biswas MD Primary Care Provider [phone] Encounter Details Date Type Department Care Team (Late st Contact Info) Description 01/16/2021 Lab Requisition [facility] Pathology & Laboratory Medicine - [address] [address] Outr Resulting Lab, Provider Social History Tobacco [...] Procedure Name Priority Date/Time Associated Diagnosis Comments HIV 1/2 ANTIGEN AND ANTIBODY, 4TH GENERATION Routine 01/15/2021 11:50 EST documented in this encounter Results * HIV 1/2 ANTIGEN AND ANTIBODY, 4TH GENERATION (01/15/2021 11:50 EST) HIV 1 and 2 Antibody/p24 Antigen, 4th Generation Negative Negative 01/20/2021 10:21 EST [facility] Comment:If acute HIV-1 infec tion is suspected in a high risk patient, submit plasma specimen for HIV-1 RNA quantitation test. Blood VENOUS BLOOD / Unknown 01/15/2021 11:50 EST 01/17/2021 15:53 EST Narrative [facility] - 01/20/2021 10:21 EST Fourth Generation assay performed on the Siemens [employer] XPT. us Provider Outr Resulting Lab IMMUNOLOGY AND SEROL OGY ORDERABLES Final Result [facility] [address] [place] [address] documented in this encounter Visit Diagnoses Not on filedocumented in this encounter Care Teams Superintendent Local Relationship Specialty Start Date End Date Piper Biswas MD [address] [place] [phone] PCP - General 08/30/20 documented as of this encounter
--- OUTSIDE RECORDS SUMMARY | 2024-01-23 11:55 | XMS_ITS | Encounter Summary ---
Author Organization [facility] Address [address] [place] [address] Care Team Providers Care Crystallizer Operator Name Role Phone Sabino Daley MD Primary Care Provider [phone] Encounter Details Date Type Department Care Team (Late st Contact Info) Description 02/27/2020 Abstract [facility] [address] [place], [place] [id number] Marleni Gaines RN Social History Tobacco Use Types Packs/Day Years Used Date Smoking Tobacco: Former Cigarettes 1 8 Interpersonal Safety Answer Date Record ed Physically [...] Diagnoses Not on filedocumented in this encounter Historical Medications * This list may reflect changes made after this encounter. ketoconazole (NIZORAL) 2 % cream Apply topically if needed. Apply to rash on breasts as needed. albuterol 90 mcg/actuation inhaler Inhale 180 mcg as directed every 4 hours. ibuprofen (MOTRIN) 600 mg tablet Take 600 mg by mouth every 8 hours as needed for Pain. valACYclovir (VALTREX) 500 mg tablet Take 500 mg by mouth 2 times daily. Take twice daily for 3 days. ondansetron (ZOFRAN-ODT) 4 mg disintegrating tablet Take 4 mg by mouth every 8 hours as needed for Nausea. eszopiclone (LUNESTA) 1 mg tablet Take 2 mg by mouth at bedtime as needed. ethinyl estradiol-etonogest rel (NUVARING) 0.12-0.015 mg/[address] Each vaginally every 28 days. Wear continuously for 3 weeks; remove for 1 week; repeat with new ring, as directed. rizatriptan (MAXALT-DATAPOWER DEVELOPER) 10 mg disintegrating tablet Take 10 mg by mouth as needed for Migraine (Take one at onset of headache; can repeat in 2 hours, max of 2 in 24 hours.). mirtazapine (REMERON) 7.5 mg tablet Take 7.5 mg by mouth daily. Take one every night. buprenorphine-nalox one (SUBOXONE) 2-0.[address] Film under the tongue daily. Take one film daily along with 8 mg to total 10 mg daily., fill at [facility] in [place] only. buprenorphine-nalox one (SUBOXONE) 8-[address] 1 Film under the tongue daily. dextroamphetamine-a mphetamine (ADDERALL XR) 10 mg XR capsule Take 10 mg by mouth daily. citalopram (CELEXA) 20 mg tablet Take 10 mg by mouth daily. hydrOXYzine (VISTARIL) 25 mg capsule Take 25 mg by mouth every 12 hours as needed (for anxiety). L-Methylfolate (L-METHYLFOLATE) 15 mg tablet Take by mouth daily. added in this encounter Care Teams Crystallizer Operator Relationship Specialty Start Date End Date Sabino Daley MD PCP - General 01/02/15 08/29/20 documented as of this encounter
--- OUTSIDE RECORDS SUMMARY | 2024-01-23 11:55 | XMS_ITS | Encounter Summary ---
Author Organization [facility] Address [address] [place] [address] Care Team Providers Care Tent Finisher Name Role Phone Sabino Daley MD Primary Care Provider [phone] Encounter Details Date Type Department Care Team (Latest Contact Info) Description 09/27/2018 16:34 EDT - 09/27/2018 16:39 EDT Hospital Encounter [facility] [address] [place] [address] Kathrine Foreman, LOCK MAINTENANCE SUPERVISOR [address] [place] [address] Discharge Disposition: Home or Self Care Social History Tobacco Use Types Packs/Day Years Used Date Smoking Tobacco: Never Assessed Comments Unknown Sex and Gender Information Value Date Recorded Sex Assigned at Not on file Legal Sex Female 18:21 EST Gender Identity Female 11/13/2020 19:49 EDT Sexual Orientation Not on file documented as of this encounter Discharge Diagnoses Diagnosis Z11.3 Encounter for screening for infections with a predominantly sexual mode of transmission-Z11.3[ICD-10-CM] Z11.8 Encounter for screening for other infectious and parasitic diseases-Z11.8[ICD-10-CM] documented in this encounter Discharge Disposition Disposition Code Departure Means Destination Home or Self Care documented in this encounter Plan of Treatment Not on file documented as of this encounter Visit Diagnoses Not on filedocumented in this encounter Care Teams Tent Finisher Relationship Specialty Start Date End Date Sabino Daley MD PCP - General 01/02/15 08/29/20 documented as of this encounter
--- OUTSIDE RECORDS SUMMARY | 2024-01-23 11:55 | XMS_ITS | Encounter Summary ---
Author Organization [facility] Address [address] [place] [address] Care Team Providers Care Animal Warden Name Role Phone Sabino Daley MD Primary Care Provider Encounter Details Date Type Department Care Team (Late st Contact Info) Description 09/27/2018 Results Only [facility] [phone] Kathrine Foreman APRN [address] [place] [address] Social History Tobacco Use Types Packs/Day Years [...] Procedure Name Priority Date/Time Associated Diagnosis Comments CHLAMYDIA/N. GONORRHOEAE AMPLIFIED RNA, URINE Routine 09/27/2018 15:00 EDT documented in this encounter Results * CHLAMYDIA/N. GONORRHOEAE AMPLIFIED RNA, URINE (09/27/2018 15:00 EDT) Chlamydia Result Negative 09/29/19 19 13:29 EDT [facility] GC Result Negative 09/28/2018 13:29 EDT [facility] Comment: A first catch urine specimen is acceptable for detection of Gonorrhea and Chlamydia, but might detect up to 10% fewer infections when compared with vaginal and endocervical swab samples. URINE / Unknown 09/27/2018 1 5:00 EDT 09/27/2018 22:11 EDT us Kathrine Foreman CATERING COORDINATOR MICROBIOLOGY - GENERAL ORDERA BLES Final Result [facility] [address] [place] [address] documented in this encounter Visit Diagnoses Not on filedocumented in this encounter Care Teams Animal Warden Relationship Specialty Start Date End Date Sabino Daley MD PCP - General 01/02/15 08/29/20 documented as of this encounter
--- OUTSIDE RECORDS SUMMARY | 2024-01-23 11:55 | XMS_ITS | Encounter Summary ---
Author Organization [facility] Address [address] [place] [address] Care Team Providers Care Wheel Buffer Name Role Phone Sabino Daley MD Primary Care Provider [phone] Piper Biswas MD Primary Care Provider [phone] Encounter Details Date Type Department Care Team (Late st Contact Info) Description 07/31/2019 Lab Requisition [facility] Pathology & Laboratory Medicine - [address] [address] Outr Resulting Lab, Provider Social History Tobacco [...] Procedure Name Priority Date/Time Associated Diagnosis Comments CELIAC DISEASE PANEL Routine 07/31/2019 10:43 EDT documented in this encounter Results * CELIAC DISEASE PANEL (07/31/2019 10:43 EDT) Tissue Transglutaminase Antibody IGA <1.2 <4.0 U/mL 08/02/2019 12:50 EDT [facility] Comment: A negative result may be due to IgA deficiency and does not rule out celiac disease. ? Negative: ??<4.0 U/mL ? Weak Positive: ??4.0 - 10.0 U/mL ? Positive: ??>10.0 U/mL Results were obtained with the [employer] QUANTA Lite R h-tTG IgA ALEX assay on the [employer] DSX. IgA 177 85 - 499 mg/dL 08/02/2019 12:50 EDT [facility] Celiac Disease Interpretation Negative Serology. Celiac disease unlikely. Approximately 10% of patients with celiac disease are seronegative. Patients who are already adhering to a gluten-free diet may also be seronegative. If celiac disease is highly clinically suspected, referral to gastroenterology for additional evaluation is recommended. 08/02/2019 12:50 EDT [facility] Blood VENOUS BLOOD / Unknown 07/31/2019 10:43 EDT 07/31/2019 20:34 EDT us Provider Outr Resulting Lab IMMUNOLOGY AND SEROL OGY ORDERABLES Final Result Performing Organization Address City/State/[facility] Co de Phone Number [facility] [address] [place] [address] documented in this encounter Visit Diagnoses Not on filedocumented in this encounter Care Teams Wheel Buffer Relationship Specialty Start Date End Date Sabino Daley MD PCP - General 01/02/15 08/29/20 Piper Biswas MD [address] [place] [phone] PCP - General 08/30/20 documented as of this encounter
--- OUTSIDE RECORDS SUMMARY | 2024-01-23 11:55 | XMS_ITS | Encounter Summary ---
Author Organization [facility] Address [address] [place] [address] Care Team Providers Care Inspector Materials And Processes Name Role Phone Sabino Daley MD Primary Care Provider [phone] Encounter Details Date Type Department Care Team (Latest Contact Info) Description 09/29/2018 8:07 EDT - 09/29/2018 11:59 EDT Hospital Encounter [facility] [address] [place] [address] Kathrine Foreman, CEMENT STORAGE WORKER [address] [place] [address] Discharge Disposition: Home or Self Care Social History Tobacco Use Types Packs/Day Years Used Date Smoking Tobacco: Never Assessed Comments Unknown Sex and Gender Information Value Date Recorded Sex Assigned at Not on file Legal Sex Female 18:21 EST Gender Identity Female 11/13/2020 19:49 EDT Sexual Orientation Not on file documented as of this encounter Discharge Diagnoses Diagnosis F19.10 Other psychoactive substance abuse, uncomplicated-F19.10[ICD-10-CM] Z13.29 Encounter for screening for other suspected endocrine disorder-Z13.29[ICD-10-CM] documented in this encounter Discharge Disposition Disposition Code Departure Means Destination Home or Self Care documented in this encounter Plan of Treatment Not on file documented as of this encounter Visit Diagnoses Not on filedocumented in this encounter Care Teams Inspector Materials And Processes Relationship Specialty Start Date End Date Sabino Daley MD PCP - General 01/02/15 08/29/20 documented as of this encounter
--- OUTSIDE RECORDS SUMMARY | 2024-01-23 11:55 | XMS_ITS | Encounter Summary ---
Author Organization [facility] Address [address] [place] [address] Care Team Providers Care Dope Pourer Name Role Phone Unavailable Primary Care Provider Unavailabl e Encounter Details Date Type Department Care Team (Late st Contact Info) Description 10/23/2011 Results Only [facility] Laboratory Services - [facility] ([facility] [address] [place], [place] [phone] Piper Biswas MD [address] [place] [phone] Social History Tobacco Use Types Packs/Day Years [...] Name Priority Date/Time Associated Diagnosis Comments PAP TEST- RESULT ONLY Routine 10/23/2011 0:00 EDT documented in this encounter Results * PAP TEST- RESULT ONLY (10/23/2011 0:00 EDT) Pathology Report: CYTOPATHOLOGY REPORT Reports generated via electronic interface contain original data; however they are lacking the format of the original report. Caution should be taken when reading/interpreti ng unformatted reports. Name: ? TRACIE ROSALES ? Accession #: ? [id number] ? : ? 1980 (Age: 31) ??F ?Collect Date: ? 10/23/2011 ? Location: ? [facility] ? Receive Date: ? 10/28/2011 ? Provider: PIPER BISWAS MD Copy to: ? Final Report SPECIMEN ADEQUACY ? Satisfactory for Evaluation - transformation zone component present - scant squamous epithelial component GENERAL CATEGORIZATION ? Negative for Intraepithelial Lesion or Malignancy ?? Last Menstural Period: 10/16/11 Hormonal/Contracep tive status: Condoms Specimen/Source: ??Pap Test, Cervix/Endocervix, ThinPrep Imaging System with manual evaluation Document reviewed and electronically signed by: ? Felicia Pinzon, CLEMENTE(ASCP) ? Report ??Date: 11/03/2011 11:37 HPV with Pap Test ? Date Ordered: ? 11/03/2011 ? Status: ?? Signed Out ?Date Complete: ? 11/05/2011 ? By: ??System Interface ? Date Reported: ? 11/05/2011 ? Interpretation RESULT: Negative for HPV. No E6 or E7 mRNA is detected from HPV types 16,18,31,33,35, 39,45,51,52,56,58, 59,66, and 68 by chart picker mediated amplification. Comments Document reviewed and electronically signed by: ? System Interface ? Report date: 11/05/2011 By the signature above, the attending physician certifies that he/she has personally conducted a gross and/or microscopic examination of the described specimens and rendered or confirmed the above diagnosis. End of Report [facility] 10/23/2011 10/28/2011 us Piper Biswas MD PATHOLOGY ORDERABLES Final Resul t [facility] [address] [place] [address] documented in this encounter Visit Diagnoses Not on filedocumented in this encounter
--- OUTSIDE RECORDS SUMMARY | 2024-01-23 11:55 | XMS_ITS | Encounter Summary ---
Author Organization [facility] Address [address] [place] [address] Care Team Providers Care Sinker Winder Name Role Phone Sabino Daley MD Primary Care Provider [phone] Encounter Details Date Type Department Care Team (Late st Contact Info) Description 09/29/2018 Results Only [facility] [phone] Unknown, Provider, Social History Tobacco Use Types Packs/Day Years [...] Procedure Name Priority Date/Time Associated Diagnosis Comments COMPLETE BLOOD COUNT Routine 09/29/2018 16:00 EDT TSH Routine 09/29/2018 16:00 EDT COMPREHENSIVE METABOLIC PANEL (CMP) Routine 09/29/2018 16:00 EDT documented in this encounter Results * TSH (09/29/2018 16:00 EDT) TSH 1.82 0.47 - 4.68 uIU/ml 09/29/2018 22:20 EDT [facility] Comment: Slight hemolysis The results of this assay can be falsely lowered due to the consumption of Biotin. BLOOD SPECIMEN / Unknown 09/29/2018 16:00 EDT 09/29/2018 21:15 EDT us Provider Unknown MD CHEMISTRY & BLOOD GAS ORDERA BLES Final Result [facility] [address] [place] [address] * (ABNORMAL) COMPREHENSIVE METABOLIC PANEL (CMP) (09/29/2018 16:00 EDT) Potassium 4.2 3.5 - 5.0 mEq/L 09/29/2018 21:33 [facility] Comment: Slight hemolysis Hemolysis may elevate potassium result. Sodium 138 136 - 145 mEq/L 09/29/2018 21:33 [facility] Comment:Slight hemolysis Chloride 104 96 - 110 mEq/L 09/29/2018 21:33 [facility] Comment:Slight hemolysis CO2 22 22 - 32 mEq/L 09/29/2018 21:33 [facility] Comment:Slight hemolysis Total Alkaline Phosphatase 122 38 - 126 U/L 09/29/2018 21:33 [facility] Comment: Slight hemolysis Hemolysis will decrease ALKP result Suggest re-evaluation if clinically indicated Bilirubin, Total 1.0 <1.4 mg/dl 09/30/19 19 21:33 [facility] Comment: Slight hemolysis Results may be affected due to hemolysis. AST 36 15 - 46 U/L 09/29/2018 21:33 [facility] Comment: Slight hemolysis Results may be affected due to hemolysis. ALT <11 <53 U/L 09/29/2018 21:33 [facility] Comment: Slight hemolysis Results may be affected due to hemolysis. Albumin 5.1(H) 3.4 - 4.9 g/dl 09/29/2018 21:33 [facility] Comment: Slight hemolysis Results may be affected due to hemolysis. Total Protein 8.5(H) 6.3 - 8.2 g/dl 09/29/2018 21:33 [facility] Comment: Slight hemolysis Results may be affected due to hemolysis. Creatinine 0.78 0.52 - 1.04 mg/dl 09/29/2018 21:33 [facility] Comment:Slight hemolysis GFR, Calculated 95 >60 ml/min/1.7 3m2 09/29/2018 21:33 [facility] Comment: eGFR calculated using CKD-EPI equation for non Americans. Multiply eGFR by 1.16 for Americans. BUN 12 10 - 26 mg/dl 09/29/2018 21:33 [facility] Comment: Slight hemolysis Results may be affected due to hemolysis. Calcium 9.5 8.5 - 10.5 mg/dl 09/29/2018 21:33 [facility] Comment:Slight hemolysis Calculated Calcium 8.6 8.5 - 10.5 mg/dl 09/29/2018 21:33 [facility] Glucose, Serum 96 70 - 100 mg/dl 09/29/2018 21:33 [facility] Comment: Slight hemolysis Results may be affected due to hemolysis. Fasting? Unknown 09/29/2018 21:16 [facility] BLOOD SPECIMEN / Unknown 09/29/2018 16:00 EDT 09/29/2018 21:15 EDT us Provider Unknown MD CHEMISTRY & BLOOD GAS ORDERA BLES Final Result [facility] [address] [place] [address] * (ABNORMAL) COMPLETE BLOOD COUNT (09/29/2018 16:00 EDT) WBC 7.46 4.0 - 12.4 K/cmm 09/29/2018 21:59 [facility] RBC 4.86 3.86 - 5.04 M/cmm 09/29/2018 21:35 [facility] Hemoglobin 15.5(H) 11.6 - 15.2 gm/dl 09/29/2018 21:35 [facility] HCT 44.9(H) 34.9 - 44.4 % 09/29/2018 21:35 [facility] MCV 92 81 - 98 fl 09/29/2018 21:35 [facility] MCH 31.9 26.7 - 33.3 pg 09/29/2018 21:35 EDT [facility] MCHC 34.5 32.1 - 35.9 gm/dl 09/29/2018 21:35 EDT [facility] RDW-CV 11.9 <14.7 % 09/29/2018 21:35 EDT [facility] RDW-SD 40.1 <50.4 fl 09/29/2018 21:35 EDT [facility] PLT Unreportable due to presence of platelet clumps 141 - 377 K/cmm 09/29/2018 21:59 EDT [facility] MPV Unreportable due to presence of platelet clumps 9.5 - 12.7 fl 09/29/2018 21:59 EDT [facility] BLOOD SPECIMEN / Unknown 09/29/2018 16:00 EDT 09/29/2018 21:15 EDT us Provider Unknown HEMATOLOGY & PF4 ORDERABLES Final Result Performing Organization Address City/State/[facility] Co de Phone Number [facility] [address] [place] [address] documented in this encounter Visit Diagnoses Not on filedocumented in this encounter Care Teams Sinker Winder Relationship Specialty Start Date End Date Sabino Daley MD PCP - General 01/02/15 08/29/20 documented as of this encounter
--- OUTSIDE RECORDS SUMMARY | 2024-01-23 11:55 | XMS_ITS | Encounter Summary ---
Author Organization [facility] Address [address] [place] [address] Care Team Providers Care Bed Control Specialist Name Role Phone Sabino Daley MD Primary Care Provider Encounter Details Date Type Department Care Team (Late st Contact Info) Description 03/21/2015 Results Only [facility] [phone] Piper Mabry MD [address] [place] [phone] Social History Tobacco Use Types Packs/Day [...] Diagnosis Comments PAP TEST- RESULT ONLY Routine 03/21/2015 0:00 EST documented in this encounter Results * PAP TEST- RESULT ONLY (03/21/2015 0:00 EST) Pathology Report: CYTOPATHOLOGY REPORT Reports generated via electronic interface contain original data; however they are lacking the format of the original report. Caution should be taken when reading/interpreti ng unformatted reports. Name: ? CONNIE TRACIE ? Accession #: ? [id number] ? : ? 1980 (Age: 35) ??F ?Collect Date: ? 03/21/2015 ? Location: ? [facility] ? Receive Date: ? 03/26/2015 ? Provider: PIPER MABRY MD Copy to: ? Final Report SPECIMEN ADEQUACY ? Satisfactory for Evaluation - transformation zone component present - scant squamous epithelial component GENERAL CATEGORIZATION ? Negative for Intraepithelial Lesion or Malignancy ?? Last Menstrual Period: 2016 Hormonal/Contracep tive status: Yes: Ortho Evra Other: Additional clinical information: Ending Menses Specimen/Source: ??Pap Test, Cervix/Endocervix, ThinPrep Imaging System with manual evaluation Document reviewed and electronically signed by: ? CLEMENTE Kuo(ASCP) ? Report ??Date: 03/29/2015 16:48 HPV with Pap Test ? Date Ordered: ? 03/29/2015 ? Status: ?? Signed Out ?Date Complete: ? 04/03/2015 ? By: ??System Interface ? Date Reported: ? 04/03/2015 ? Interpretation RESULT: Negative for HPV. No E6 or E7 mRNA is detected from HPV types 16,18,31,33,35, 39,45,51,52,56,58, 59,66, and 68 by bottom precipitator operator mediated amplification. Comments Document reviewed and electronically signed by: ? System Interface ? Report date: 04/03/2015 By the signature above, the attending physician certifies that he/she has personally conducted a gross and/or microscopic examination of the described specimens and rendered or confirmed the above diagnosis. End of Report [facility] 03/21/2015 03/26/2015 us Piper Mabry MD PATHOLOGY ORDERABLES Final Resul t [facility] [address] [place] [address] documented in this encounter Visit Diagnoses Not on filedocumented in this encounter Care Teams Bed Control Specialist Relationship Specialty Start Date End Date Sabino Daley MD PCP - General 01/02/15 08/29/20 documented as of this encounter
--- OUTSIDE RECORDS SUMMARY | 2024-01-23 11:55 | XMS_ITS | Encounter Summary ---
Author Organization [facility] Address [address] [place] [address] Care Team Providers Care Kick Boxer Name Role Phone Unavailable Primary Care Provider Unavailabl e Encounter Details Date Type Department Care Team (Late st Contact Info) Description 08/13/2008 Orders Only [facility] Laboratory Services - [facility] ([facility]) [address] [place], [place] [id number] Dorina Mcrae, JARED [address] [place] [phone] Social History Tobacco Use Types Packs/Day [...] Procedure Name Priority Date/Time Associated Diagnosis Comments HPV DETECTION, HIGH RISK TYPES Routine 08/13/2008 11:02 EDT CYTOPATHOLOGY Routine 08/13/2008 0:00 EDT documented in this encounter Results * HUMAN PAPILLOMA VIRUS DNA TEST (08/13/2008 11:02 EDT) Specimen Description Cervix, ThinPrep vial [facility] Result Negative for HPV types 16, 18, 31, 33, 35, 39, 45, 51, 52, 56, 58, 59, and 68. [facility] Report Status Final 08/22/2008 [facility] 08/13/2008 11:0 2 EDT 08/17/2008 11:02 EDT us Dorina Mcrae NP MICROBIOLOGY - GENERAL ORDER CARLA Final Result [facility] [address] [place] [address] * CYTOPATHOLOGY (08/13/2008 0:00 EDT) Pathology Report: CYTOPATHOLOGY REPORT ? Reports generated via electronic interface contain original data; ? however they are lacking the format of the original report. ? Caution should be taken when reading/interpreti ng unformatted reports. ? Name: ? TRACIE ROSALES ? Accession #: ? [id number] ? : ? 1980 (Age: 28) ??F ?Collect Date: ? 08/13/2008 ? Location: ? [facility] ? Receive Date: ? 08/14/2008 ? Provider: ?FRANCOIS BRODZINSKI BUNDLE COLLECTOR ? Copy to: ? Specimen/Source: ?Pap Test, Cervix/Endocervix, ThinPrep Imaging System ? with manual evaluation ? Last Menstrual Period: ? 6/8/09 ? Hormonal/Contracep tive Status: ? Yes: condoms ? Other: ? HPVDX - HPV testing requested regardless of diagnosis on current ThinPrep Pap ?? test. ? SPECIMEN ADEQUACY ? Satisfactory for Evaluation ? - transformation zone component present ? GENERAL CATEGORIZATION ? Negative for Intraepithelial Lesion or Malignancy ? INTERPRETATION ? Shift in alicia present suggestive of bacterial vaginosis. ? Document reviewed and electronically signed by: ? Emily Delvin, CT(ASCP) ? Report Date: ??08/16/2008 12:42 ? End of Report ? [facility] 08/13/2008 08/14/2008 us Dorina Mcrae BUNDLE COLLECTOR PATHOLOGY ORDERABLES Final R esult [facility] [address] [place] [address] documented in this encounter Visit Diagnoses Not on filedocumented in this encounter
[2024-01-23 12:27] VITALS: RESP 14
--- NOTE | 2024-01-23 12:28 | ED.GENADUL_ITS ---
Discharge Plan Disposition Patient Disposition: Home Condition: Stable Discharge Details Clinical Impression: Depression, Nausea Primary Care Provider: Piper Biswas ED Provider: Gilda Herzog Home Meds and New Rx's Prescriptions: New ondansetron 4 mg tablet,disintegrating 4 mg PO Q8H PRN (Reason: nausea and vomiting) 4 Days Qty: 9 0RF Rx Instructions: Take 1 tablet up to 3 times daily as needed for nausea and vomiting 20 minutes prior to meals. No Action valacyclovir 500 mg tablet 500 mg PO DAILY PRN ondansetron HCl 4 MG tablet 4 mg PO TID albuterol sulfate 8.5 GM HFA aerosol inhaler 2 puff Inhalation BID buprenorphine-naloxone [Suboxone] 8-2 mg film 8 mg Sublingual DAILY ketoconazole 2 % cream 1 applic TP DAILY PRN rizatriptan 10 mg tablet 10 mg PO ONCE PRN Rx Instructions: may repeat once after at least 2 hours albuterol sulfate [ProAir HFA] 90 mcg/actuation HFA aerosol inhaler 2 puff inhalation Q6H PRN Cryselle (28) 0.3-30 mg-mcg tablet 1 tab PO DAILY trazodone 50 mg tablet 50 mg PO DAILY famotidine 20 mg tablet 20 mg PO BID fluticasone propionate 50 mcg/actuation blister with device 1 inh inhalation BID buprenorphine-naloxone [Suboxone] 8-2 mg film 2 film buccal DAILY Rx Instructions: place 1 film on inside of (each) cheek bupropion HCl 100 mg tablet 75 mg PO DAILY quetiapine 25 mg tablet 25 mg PO BID PRN Patient Comments: TAKE ONE TABLET BY MOUTH TWICE A DAY NEEDED FOR ANXIETY OR ELPIDIO. MAY TAKE TWO TABLETS AT BEDTIME FOR SLEEP +MAX 4 TABLETS PER DAY+ clonidine HCl 0.1 mg tablet 0.1 mg PO BID Patient Comments: TAKE 1 TABLET BY MOUTH TWICE A DAY Discharge Instructions Instructions: Depression, Adult ED, Nausea and Vomiting, Adult ED Additional Instructions: Take the nausea medications as directed 20 to 30 minutes before eating or drink ing anything up to 3 times daily. At that time the CT is within normal limits. No evidence of obstruction infection or urinary tract infection. Please follow-up as directed by [facility] human services. You do appear to be somewhat dehydrated. Increase oral fluids. Follow up with primary care provider in 3-5 days. Return to ED sooner if any worsening or concerns. Discharge Data Discharge Date/Time-TO BE ENTERED AT DEPARTURE: 01/23/24 15:58 HPI General Mode of arrival: ambulatory . Date/Time Provider Initiated Documentation: 01/23/24 12:03 . Limitations to Documentation: no limitations . Information obtained by: patient, RN notes reviewed and old records reviewed . HPI Narrative: 44-year-old female presents to the ER with a chief complaint of generalized abdominal pain and bloating, nausea vomiting for the last 5 days. She does have a history of chronic abdominal problems and possible IBS. She reports that she has been unable to sleep for the last 5 days as well. She has a past medical history of obstructive sleep apnea, ADHD, migraine. She also reports feeling hopeless however she denies any current suicidal ideations. Related Data Home Medications ?Medication ?Instructions ?Recorded ?Confirmed albuterol sulfate 90 mcg/actuation 2 puff inhalation BID 09/18/14 01/23/24 aerosol inhaler ondansetron HCl 4 mg tablet 4 mg PO TID 09/18/14 01/23/24 buprenorphine 8 mg-naloxone 2 mg 8 mg sublingual DAILY 06/01/18 01/23/24 sublingual film (Suboxone) valacyclovir 500 mg tablet 500 mg PO DAILY PRN 06/01/18 01/23/24 ketoconazole 2 % topical cream 1 applic topical DAILY PRN 08/03/19 01/23/24 rizatriptan 10 mg tablet 10 mg PO ONCE PRN 08/03/19 01/23/24 albuterol sulfate 90 mcg/actuation 2 puff inhalation Q6H PRN 01/01/22 01/23/24 aerosol inhaler (ProAir HFA) norgestrel 0.3 mg-ethinyl 1 tab PO DAILY 01/01/22 01/23/24 estradiol 30 mcg tablet (Cryselle (28)) trazodone 50 mg tablet 50 mg PO DAILY 01/01/22 01/23/24 buprenorphine 8 mg-naloxone 2 mg 2 film buccal DAILY 03/09/23 01/23/24 sublingual film (Suboxone) famotidine 20 mg tablet 20 mg PO BID 03/09/23 01/23/24 fluticasone propionate 50 1 inh inhalation BID 03/09/23 01/23/24 mcg/actuation blister powder for inhalation bupropion HCl 100 mg tablet 75 mg PO DAILY 05/20/23 01/23/24 clonidine HCl 0.1 mg tablet 0.1 mg PO BID 01/23/24 01/23/24 ondansetron 4 mg disintegrating 4 mg PO Q8H PRN nausea and 01/23/24 tablet vomiting 4 days #9 tabs quetiapine 25 mg tablet 25 mg PO BID PRN 01/23/24 01/23/24 Previous Rx's ?Medication ?Instructions ?Recorded ondansetron 4 mg disintegrating 4 mg PO Q8H PRN nausea and 01/23/24 tablet vomiting 4 days #9 tabs Allergies Allergy/AdvReac Type Severity Reaction Status Date / Time [place] And Derivatives Allergy Unknown Other (See Verified 01/23/24 12:02 Comment) Latex, Natural Rubber Allergy Unknown Skin Rash Verified 01/23/24 12:02 milk Allergy Unknown unknown Verified 01/23/24 12:02 General Stated Complaint: GenMedical RICA: 3 Review of Systems All systems reviewed & are unremarkable except as noted in HPI and below Gastrointestinal Gastrointestinal: Reports as per HPI, Reports abdominal pain, Reports bloating, Reports constipation, Reports loose stools, Reports nausea and Reports vomiting Genitourinary Genitourinary: Reports urinary hesitancy Psychiatric Psychiatric: Reports hopelessness Exam Narrative Exam Narrative: Constitutional: Alert and oriented x3. Appears stated age. Normal body habitus. Head: Normocephalic, no trauma. Eyes: Pupils PERRL, Red reflex noted, EOM's intact. Eyelids symmetrical without lesions, discharge, or swelling. ENT: Bilateral TM's WNL, External ear normal to inspection, no mastoid TTP, swelling, or erythema, Nasal turbinates WNL, no nasal discharge. Normal dentition, Posterior pharynx WNL, no exudate. Chest: RRR, Normal S1, S2, distal pulses intact. Resp: Lungs clear to auscultation bilaterally, no wheezes, rales, or rhonchi. Abdomen: Soft, non-distended, Normoactive bowel sounds all 4 quads. Musculoskeletal: Normal gait, Moves all 4 extremities without difficulty. Skin: No suspicious rashes or lesions. Capillary refill less than 2 sec. Neurologic: Cranial nerves II-XII intact. Alert and oriented x 3. Motor: No deficits noted. Sensory: Intact bilaterally all 4 extremities. Hematologic/Lymphatic: No ecchymosis, no lymphadenopathy. Psych Appearance: well kempt Speech and Movement: pressured speech Mood: expansive Affect: sad Attitude: cooperative Thought Process: flight of ideas Thought Content: normal Course Vital Signs Vital signs: Vital Signs Temperature 37.3 C 01/23/24 11:53 Pulse 86 01/23/24 11:53 Respiratory Rate 16 01/23/24 11:53 Blood Pressure 162/87 H 01/23/24 11:53 Pulse Oximetry 98 01/23/24 11:53 Temperature 37.3 C 01/23/24 11:53 Pulse 86 01/23/24 11:53 Respiratory Rate 16 01/23/24 11:53 Respiratory Effort Normal 01/23/24 12:05 Blood Pressure 162/87 H 01/23/24 11:53 Blood Pressure Position Sitting 01/23/24 11:53 Pulse Oximetry 98 01/23/24 11:53 Oxygen Delivery Method Room Air 01/23/24 11:53 Oxygen Flow Rate 0 01/23/24 11:53 Pain Level 6 01/23/24 11:53 Lab/Test Results Lab/Test Results: POC- Test(urine) Negative Medical Decision Making 44-year-old female presents to the ER with a chief complaint of generalized abdominal pain and bloating, nausea vomiting for the last 5 days. She does have a history of chronic abdominal problems and possible IBS. She reports that she has been unable to sleep for the last 5 days as well. She has a past medical history of obstructive sleep apnea, ADHD, migraine. She also reports feeling hopeless however she denies any current suicidal ideations. Workup ordered including CBC CMP, lipase Zofran 4 mg IV push, will add on a UDS to the urinalysis. CT within normal limits. Patient reports that her nausea is better. Will send patient home with Zofran 3 tablets of ODT. Encouraged to push oral fluids while here. Patient reevaluation and discussion of the CT results and lab results she verbalized understanding. She began crying during her conversation and is requesting to speak with mental health. Mental health consult put in. Spoke with [facility] mental health Sangeetha regarding patient case in details she will set up a Zoom meeting. Spoke again with [facility], she reports that patient is to be discharged home with follow-up care. Patient discharged in the care of her family. Imaging Data Radiologic Study: Imaging: CT Scan Radiologist's impression: FINDINGS: ABDOMEN: Lung Bases: Normal where visualized. Liver: Normal density. No measurable mass. Portal, Superior Mesenteric, and Splenic Veins: Unremarkable. Gallbladder and Biliary Tract: No radiodense calculus or dilation. Pancreas: Normal density, no abnormal calcifications or inflammatory process. Spleen: Normal. Adrenals: No masses seen. Kidneys: Normal size, contour and axis. No radiodense stones or obstructive uropathy. No masses seen. Abdominal Aorta: Abdominal portion non-dilated. Bowel: No obstruction or bowel wall thickening. Appendix is unremarkable. There is a small duodenal diverticulum. Peritoneal Cavity: No ascites, collection or mesenteric inflammatory response. No free air. Lymph Nodes: Within normal limits. Bones: Within normal limits for the patient's age. There is L4 spondylolysis without spondylolisthesis. Soft Tissues: Small fat containing umbilical hernia. PELVIS: Bladder: Symmetric distention, no gross wall thickening. Reproductive Organs: Unremarkable as visualized. Lymph Nodes: Within normal limits. Bones: Within normal limits for the patient's age. IMPRESSION: No acute abdominal or pelvic process. Lab Data Lab results reviewed: Yes I reviewed the patient's lab results. Labs: Laboratory Tests Range/Units 01/23/24 01/23/24 12:11 12:41 WBC (4.4-10.8) 10^3/uL 8.71 RBC (3.93-5.22) 10^6/uL 5.04 Hgb (11.2-15.7) g/dL 15.7 Hct (36.0-46.0) % 46.3 H MCV (80-95) fL 92 MCH (27.0-33.0) pg 31.2 MCHC (32.0-36.0) % 33.9 RDW (11.7-14.6) % 11.9 Plt Count (130-400) 10^3/uL 176 MPV (8.0-11.0) fL 10.9 Immature Gran % % 0.1 Neutrophils % % 77.8 Lymphocytes % % 16.3 Monocytes % % 4.8 Eosinophils % % 0.3 Basophils % % 0.7 Nucleated RBC % (0.0-0.3) % 0.0 Absolute Neutrophils (1.2-6.7) 10^3/uL 6.77 H Absolute Lymphocytes (1.2-3.4) 10^3/uL 1.42 Absolute Monocytes (0.1-0.8) 10^3/uL 0.42 Absolute Eosinophils (0.0-0.7) 10^3/uL 0.03 Absolute Basophils (0.0-0.2) 10^3/uL 0.06 Sodium (136-145) mmol/L 141 Potassium (3.5-5.1) mmol/L 3.8 Chloride (98-107) mmol/L 102 Carbon Dioxide (21.0-32.0) mmol/L 26.5 Anion Gap (3-11) mmol/L 12.5 H BUN (7-18) mg/dL 6 L Creatinine (0.55-1.02) mg/dL 1.1 H Est GFR (CKD-EPI 2020) (mL/min/1.73m2) 62.76 Glucose (74-106) mg/dL 125 H Calcium (8.5-10.1) mg/dL 8.8 Magnesium (1.8-2.4) mg/dL 2.0 Total Bilirubin (0.2-1.0) mg/dL 0.36 AST (15-37) U/L 23 ALT (14-59) U/L 36 Alkaline Phosphatase (46-116) U/L 82 Total Protein (6.4-8.2) g/dL 8.9 H Albumin (3.4-5.0) g/dL 4.7 Lipase (<78) U/L 17 Urine Color (Yellow) Yellow Urine Clarity (Clear) Sl Cloudy Urine pH (5-8) 7.5 Ur Specific Mabel (1.005-1.025) 1.020 Urine Protein (Neg-Trace) mg/dL 30 H Urine Ketones (Negative) mg/dL 40 H Urine Blood (Negative) Trace-intact H Urine Nitrite (Negative) Negative Urine Bilirubin (Negative) Negative Urine Urobilinogen (Up to 0.2) mg/dL 0.2 Ur Leukocyte Esterase (Negative) Negative Urine RBC (0-2) HPF 3-5 H Urine WBC (0-5) HPF 0-2 Ur Epithelial Cells (Negative) HPF Many Urine Crystals (Negative) HPF Negative Urine Bacteria (Negative) HPF Moderate Urine Casts (Negative) LPF Negative Urine Mucus (Negative) Negative Ur Culture Indicated? No Urine Glucose (Negative) mg/dL Negative Urine Opiates Screen (Negative) Negative Urine Methadone Screen (Negative) Negative Ur Barbiturates Screen (Negative) Negative Ur Tricyclics Screen (Negative) Negative Ur Amphetamines Screen (Negative) Negative U Benzodiazepines Scrn (Negative) Negative Urine Cocaine Screen (Negative) Negative Ur THC Screen (Negative) Positive A Quality:SDOH Health Related Social Needs: No Data to Display PFSH All Active Problems (Updated 01/23/24 @ 15:53 by Gilda Herzog NP) Nausea (Acute) Migraine headache without aura (Acute) Urinary incontinence (Acute) PTSD (post-traumatic stress disorder) (Acute) Opioid dependence on agonist therapy (Acute) Insomnia (Acute) Herpes genitalia (Acute) Depression (Chronic) Allergic rhinitis (Acute) Excessive sweating (Acute) Plantar fasciitis (Acute) Fatigue (Acute) Medical History FLORIAN (obstructive sleep apnea) Edema Excessive thirst Pain of both breasts Nausea and vomiting Vertigo Cannabis abuse Migraine ADHD Pain of right thumb Contraceptive education Family History Maternal Aunt Breast cancer Diabetes Social History Smoking/Tobacco Use Status: Never Smoking risk assessment performed?: Yes Alcohol Intake: never Drug use: Daily Substance use type: former substance user and marijuana Household members: significant other Number of Children: 0 current occupation: Unemployed Do you feel safe at home: Yes Do you feel safe in your relationship?: Yes Female Reproductive History Menstrual control method: condoms History History 1 Para 0 Hx # Term Pregnancies Multiple births Hx # Pregnancies Ectopic pregnancies AB induced Hx Number of Living Children AB spontaneous
--- NOTE | 2024-01-23 12:30 | DI.CT_ITS ---
Exam(s) CT ABDOMEN PELVIS W EXAM: CT ABDOMEN PELVIS W CLINICAL HISTORY: Abdominal pain, Nausea, vomiting TECHNIQUE: Imaging Protocol: Axial computed tomography images with coronal and sagittal reformatted images were created and reviewed. CONTRAST MATERIAL: Intravenous: Omnipaque 350 Contrast volume:100 mL Oral: No COMPARISON: No exams were available for comparison FINDINGS: ABDOMEN: Lung Bases: Normal where visualized. Liver: Normal density. No measurable mass. Portal, Superior Mesenteric, and Splenic Veins: Unremarkable. Gallbladder and Biliary Tract: No radiodense calculus or dilation. Pancreas: Normal density, no abnormal calcifications or inflammatory process. Spleen: Normal. Adrenals: No masses seen. Kidneys: Normal size, contour and axis. No radiodense stones or obstructive uropathy. No masses seen. Abdominal Aorta: Abdominal portion non-dilated. Bowel: No obstruction or bowel wall thickening. Appendix is unremarkable. There is a small duodenal d iverticulum. Peritoneal Cavity: No ascites, collection or mesenteric inflammatory response. No free air. Lymph Nodes: Within normal limits. Bones: Within normal limits for the patient's age. There is L4 spondylolysis without spondylolisthes is. Soft Tissues: Small fat containing umbilical hernia. PELVIS: Bladder: Symmetric distention, no gross wall thickening. Reproductive Organs: Unremarkable as visualized. Lymph Nodes: Within normal limits. Bones: Within normal limits for the patient's age. IMPRESSION: No acute abdominal or pelvic process. RADIATION DOSE DELIVERED: 747.26mGy.cm Total DLP DATA REPOSITORY: All CT scans at this facility are submitted to the National Radiology Data Registry (NRDR) Dose Index Registry (DIR) with the [employer] (ACR). RADIATION OPTIMIZATION: All CT scans at this facility use at least one of these dose optimization te chniques: automated exposure control; mA and/or kV adjustment per patient size (includes targeted exa ms where dose is matched to clinical indication); or iterative reconstruction.
[2024-01-23 12:34] LABS: Bilirubin Negative (Negative); Blood Trace-intact (Negative); Clarity Sl Cloudy (Clear); Glucose Negative (Negative); Ketones 40 mg/dL (Negative); Leukocyte Esterase Negative (Negative); Nitrite Negative (Negative); Urobilinogen 0.2 mg/dL (Up to 0.2); pH 7.5 (5-8)
[2024-01-23] MEDS: Ondansetron 4 MG/2 ML VIAL IVP (12:39)
[2024-01-23 12:42] LABS: Bacteria Moderate HPF (Negative); C & S Indicated? No; Casts Negative LPF (Negative); Crystals Negative HPF (Negative); Epithelial Cells Many HPF (Negative); Mucus Negative (Negative); WBC 0-2 HPF (0-5)
[2024-01-23] MEDS: Normal Saline - Diluent 50 ML VIAL IJ (12:49)
[2024-01-23] MEDS: Omnipaque 350 MG/ML 100 ML BTL IJ (12:50)
[2024-01-23 12:51] LABS: Abs Immature Grans 0.01 10^3/uL (0.0-0.06); Absolute Basophil Count 0.06 10^3/uL (0.0-0.2); Absolute Eosinophil Count 0.03 10^3/uL (0.0-0.7); Absolute Lymphocyte Count 1.42 10^3/uL (1.2-3.4); Absolute Monocyte Count 0.42 10^3/uL (0.1-0.8); Absolute Neutrophil Count 6.77 10^3/uL (1.2-6.7); Basophils % 0.7 %; Eosinophils % 0.3 %; HCT 46.3 % (36.0-46.0); HGB 15.7 g/dL (11.2-15.7); Immature Grans % 0.1 %; Lymphocytes % 16.3 %; MCH 31.2 pg (27.0-33.0); MCHC 33.9 % (32.0-36.0); MCV 92 fL (80-95); MPV 10.9 fL (8.0-11.0); Monocytes % 4.8 %; Neutrophils % 77.8 %; Platelet Count 176 10^3/uL (130-400); RBC 5.04 10^6/uL (3.93-5.22); RDW 11.9 % (11.7-14.6); RDW-SD 40.1 fL; WBC 8.71 10^3/uL (4.4-10.8)
[2024-01-23 13:06] LABS: ALT 36 U/L (14-59); AST 23 U/L (15-37); Albumin 4.7 g/dL (3.4-5.0); Alkaline Phosphatase 82 U/L (46-116); Anion Gap 12.5 mmol/L (3-11); BUN 6 mg/dL (7-18); Bilirubin, Total 0.36 mg/dL (0.2-1.0); CO2 26.5 mmol/L (21.0-32.0); CREATININE 1.1 mg/dL (0.55-1.02); Calcium 8.8 mg/dL (8.5-10.1); Chloride 102 mmol/L (98-107); Estimated GFR 62.76 (mL/min/1.73m2); Glucose 125 mg/dL (74-106); Lipase 17 U/L (<78); Potassium 3.8 mmol/L (3.5-5.1); Sodium 141 mmol/L (136-145); Total Protein 8.9 g/dL (6.4-8.2)
[2024-01-23 13:07] LABS: *AMPHETAMINES SCREEN URINE Negative (Negative); *BARBITURATES SCREEN URINE Negative (Negative); *BENZODIAZEPINES SCREEN URINE Negative (Negative); Cannabinoids THC Positive (Negative); Cocaine Screen,Urine Negative (Negative); METHADONE URINE SCREEN Negative (Negative); OPIATES URINE SCREEN Negative (Negative)
[2024-01-23 13:09] LABS: Tricyclic Antidepressants Negative (Negative)
[2024-01-23 13:24] VITALS: BP 122/89; PULSE 60; RESP 20; O2SAT 98
[2024-01-23] MEDS: Ondansetron O.D.T. 4 MG TABEF, 3 TABS/BTL PO (15:45)
--- NOTE | 2024-01-25 11:38 | NUR.NOTE ---
Nursing Note: Received note that patient had called stating she was not feeling better and wondering if her CT could be re-checked. Called patient back on the cell phone # on file, left message that patient can return at any time to be rechecked either though the ER, PCP, or walk in clinic.
== END 2024-01-23 15:58 | disposition home or self-care (01) ==
PROVIDERS: Emergency Provider Registered Nurse Emergency; PCP Family Medicine
DX: R11.2 Nausea with vomiting, unspecified (principal); R10.84 Generalized abdominal pain; F32.A Depression, unspecified
CPT/HCPCS: 36415; 80053; 80307; 81025; 83690; 96374; 99285; 74177; 81003; 81015; 83735; 85025; 99284; J2405; J3490

== ENCOUNTER 2024-06-09 00:12 | Outpatient (CLI) | payer MEDICAID, SELFPAY ==
--- NOTE | 2024-06-09 15:04 | DI.MAMMO_ITS ---
Exam(s) MAMMO SCREENING EXAM: MAMMO SCREENING CLINICAL HISTORY: Z12.39 Screening. TECHNIQUE: Bilateral full field digital CC and MLO mammographic images were obtained with 3D tomosyn thesis and utilizing computer aided detection (CAD). COMPARISON: None. This is a baseline mammogram on a 44-year-old. FINDINGS: Fibroglandular tissue pattern is moderately dense. In the left breast on the MLO view there is a 7 x 4 millimeter nodule located 8 cm in from the nipple . Further imaging recommended. In the right breast on the MLO view there is also a 5 x 4 millimeter nodule located 6 cm in from the nipple. Further imaging recommended. There are no malignant-appearing microcalcification groups in these regions nor elsewhere in either b reast. There is no significant architectural distortion nor skin thickening-retraction. IMPRESSION: Single nodule noted in each breast on the MLO views. Bilateral spot compression MLO views and bilate ral breast ultrasound recommended. BI-RADS Category 0 - Incomplete: Need additional imaging evaluation Breast Density - Category C - Heterogeneously dense Breast density Category C or D implies that the patient has dense breast tissue. Dense breast tissue can make it harder to find cancer on a mammogram. Dense breast tissue is also associated with an incr eased risk of breast cancer. This information about the result of the mammogram report was provided to the patient to raise their awareness. Use this report when you speak with the patient about their risks for breast cancer, which includes their family history. At that time, you may recommend additional screening tests (Ultrasoun d or MRI) as these tests may add significant information. A negative radiographic report should not delay biopsy if a dominant or clinically suspicious mass is present. Up to ten percent of cancers are not identified on mammography. A negative report may reinforce clinical impression. Adenosis and dense breasts may obscure an underlying neoplasm. False positive reports average 6 to 10%. Patient will receive a letter notifying them of these results.
== END 2024-06-09 00:32 ==
LOC: DI 00:12
PROVIDERS: PCP Family Medicine; Visit Provider Student in an Organized Health Care Education/Training Program
DX: Z12.31 Encounter for screening mammogram for malignant neoplasm of breast (principal); R92.333 Mammographic heterogeneous density, bilateral breasts
CPT/HCPCS: 77063; 77067

== ENCOUNTER 2024-09-11 00:44 | Outpatient (CLI) | payer MEDICAID, SELFPAY ==
--- NOTE | 2024-09-11 | DI.US_ITS ---
Exam(s) US BREAST LT LIMITED MG MAMMO SCREEN CALL BACK BI EXAM: MAMMO SCREEN CALL BACK BI CLINICAL HISTORY: F/U ABNL MAMMO, SINGLE NODULE EACH BREAST, R92.8. TECHNIQUE: Spot compression digital Mammography views of the bothbreasts with Tomosynthesis followed by bilateral breast ultrasound. COMPARISON: [facility] MAMMO SCREENING from 06/09/2024 FINDINGS: RIGHT BREAST: Mammography/Tomosynthesis: Masses/Architectural Distortion: None seen. Microcalcifictions: No suspicious pleomorphic-type are seen. Skin Thickening/Nipple Retraction: None. LEFT BREAST: Mammography/Tomosynthesis: Masses/Architectural Distortion: Small circumscribed nodule, likely intramammary lymph node. No suspicious masses are identified. Microcalcifictions: No suspicious pleomorphic-type are seen. Skin Thickening/Nipple Retraction: None. Left breast ultrasound: Echotexture: Normal appearance of the glandular tissue. Shadowing: No suspicious foci. Cyst: None. Solid lesions: None seen. Ductal dilation: None. IMPRESSION: 1. Right breast: No evidence of malignancy is noted. 2. Left breast: No evidence of malignancy is noted. 3. Unless there is more urgent need, follow-up screening mammography is recommended, as per [place] [employer] guidelines. 4. The findings were discussed with the patient on the date of the examination. BI-RADS Category 2 - Benign Findings Breast Density - Category C - The breast are heterogeneously dense, which may obscure small masses. Breast density Category C or D implies that the patient has dense breast tissue. Dense breast tissue can make it harder to find cancer on a mammogram. Dense breast tissue is also associated with an increased risk of breast cancer. This information about the result of the mammogram report was provided to the patient to raise their awareness. Use this report when you speak with the patient about their risks for breast cancer, which includes their family history. At that time, you may recommend additional screening tests (Ultrasound or MRI) as these tests may add significant information. A negative radiographic report should not delay biopsy if a dominant or clinically suspicious mass is present. Up to ten percent of cancers are not identified on mammography. A negative report may reinforce clinical impression. Adenosis and dense breasts may obscure an underlying neoplasm. False positive reports average 6 to 10%. Patient will receive a letter notifying them of these results.
== END 2024-09-11 01:04 ==
LOC: DI 00:44
PROVIDERS: PCP Student in an Organized Health Care Education/Training Program; Visit Provider Student in an Organized Health Care Education/Training Program
DX: R92.8 Other abnormal and inconclusive findings on diagnostic imaging of breast (principal); Z12.31 Encounter for screening mammogram for malignant neoplasm of breast
CPT/HCPCS: 76642; 77063; 77067

== ENCOUNTER 2024-11-15 15:04 | Outpatient (REF) | payer MEDICAID, SELFPAY ==
--- NOTE | 2024-11-15 14:45 | PAPFT_PTH ---
PATIENT: Tracie Rivera LOC: [facility] U#:[id number] AGE/SX: 44/F ROOM: RE11/15/[address]: Abimbola Roberto NP : 1980 BED: DIS: 11/15/2024 SPEC #: [id number] RECD: 11/15/24 18:07 STATUS: ANGIE REQ #: [id number] YANG: 11/15/24 14:[address]: Felisa COLEMAN,Abimbola DEPT: [facility] Cytology RECD BY: Janie Madden ENTERED: 11/15/24 18:08 SP TYPE: PAPFT OTHR DR: Noel Navas Tissues: 1 - CX/ENDOCX FOR PAP SMEARS Procedures: PAP THIN PREP/UVM Screening HPV DNA PROBE Comments: [id number] (HPV 16 & 18/45) (CHLAMYDIA/GC)
[2024-11-16 12:00] LABS: Chlamydia Result Negative (Negative); GC Result Negative (Negative)
== END 2024-11-15 15:05 | disposition home or self-care (01) ==
LOC: LBN 15:04
PROVIDERS: PCP Student in an Organized Health Care Education/Training Program; Visit Provider Nurse Practitioner Women's Health
DX: Z12.4 Encounter for screening for malignant neoplasm of cervix (principal)
CPT/HCPCS: 87491; 87591; 88142; 87624